=== PATIENT | female | born 1990 | race American Indian/Alaskan Native ===

== ENCOUNTER 2022-05-13 13:11 | Outpatient (CLI) | payer BC ==
[2022-05-13 13:34] VITALS: BP 127/68
--- NOTE | 2022-05-14 01:40 | History and Physical Report ---
History of Present Illness Date of examination: 05/14/22 Chief complaint: Contractions History of present illness: EDC Confirmation: 05/21/2022 Past History : 4 Term Births: 2 Premature Births: 0 Living Children: 2 Para: 2 Mult. Births: 0 Prev : 0 Aborta: 1 Elect. Ab: 0 Spont. Ab: 1 Ectopics: 0 # 1 Delivery date: 2010 Weeks Gestation: 40 labor: no Delivery type: Hours of labor: 6 Anesthesia type: none Delivery location: [facility] Inf[facility] Sex: Female weight: 6lbs Comments: no complications # 2 Delivery date: 2014 Weeks Gestation: 40 labor: no Delivery type: Hours of labor: 6 Anesthesia type: none Delivery location: [facility] Infant Sex: Male weight: 11lbs Comments: no complications, large baby # 3 Delivery date: 2017 Weeks Gestation: 5 Delivery type: SAB Comments: D&C Past Medical History: Reviewed and updated today: stomach ulcer-2017 Past Surgical History: Reviewed and updated today: Appendectomy 2015 D&C: 2016 Hernia repair 2015 Family History Summary: First Degree Blood Relative - Has No Known Family History - Entered On: 10/20/2021 Social History: Smoking History: Patient has never smoked. Risk Factors: Smoked Tobacco Use: Never smoker Smokeless Tobacco Use: Never Counseled to Quit/Cut Down: yes Passive Smoke Exposure: no HIV High Risk Behavior: no Caffeine Use: 1 drinks per day Exercise: no Exercise Counseling: yes Seatbelt Use: preg-residential counselor % Family History Risk Factors: Family History of MO in 1 Female Relative Age < 65: no Family History of MO in 1 Male Relative Age < 55: no No Dietary Counseling Reason: pn yes Alcohol Use: no Drug Use: no Past Medical History Anesthesia Complications: negative Anemia: negative Autoimmune Disorder: negative Bleeding Disorder: negative Blood Transfusions: negative Breast Disease: negative Diabetes: negative Heart Disease: negative Hypertension: negative Hepatitis/Liver Disease: negative Kidney Disease/UTI: negative Neurologic/Epilepsy/Migraines: negative Phlebitis/Varicosities: negative Psychiatric: negative Pulmonary Disease/Asthma: negative Thyroid Disease: negative Surgery (Non-lockstitch pocket setter): Appendectomy 2015 D&C: 2016 Hernia repair 2015 Abnormal PAP: negative ERMA Exposure: negative Infertility: negative Uterine Anomaly: negative Uterine Surgery (not C/S): negative Other Gynecologic Problems: negative Social Hx: Smoking History: Patient has never smoked. Infection History Hx of STD: none HIV Risk Eval: no Hepatitis B Risk Eval: low risk Personal hx. of genital herpes: no Partner hx. of genital herpes: no Rash, Viral, or Febrile illness since last LMP? no Genetic History Congenital Heart Defect: Mom: no Dad: no Galdino Disease: Mom: no Dad: no Thalassemia Mom: no Dad: no Neural Tube Defect Mom: no Dad: no Down's Syndrome Mom: no Dad: no Damaso-Sachs Mom: no Dad: no Sickle Cell Disease/Trait Mom: no Dad: no Hemophilia Mom: no Dad: no Muscular Dystrophy Mom: no Dad: no Cystic Fibrosis Mom: no Dad: no [place] Chorea Mom: no Dad: no Mental Retardation Mom: no Dad: no Fragile X Mom: no Dad: no Other Genetic/Chromosomal Disorder Mom: no Dad: no Child w/other defect Mom: no Dad: no Enviromental Exposures Enviromental Exposures Reviewed Xray Exposure: no Medication, drug, or alcohol use since LMP: no Chemical/Other Exposure: no Exposure to Cat Liter: no Hx of Parvovirus (Fifth Disease): no Occupational Exposure to Children: none Active Medications (reviewed today): None Current Allergies (reviewed today): * IBUPROFEN (Critical) Past History Past Medical History: other (see HPI) Past Surgical History: other (see HPI) 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 (see HPI) Family/Genetic History: other (see HPI) Social history: no significant social history - Obstetrical History Expected Date of Delivery: 05/21/22 Actual Gestation: 39 Week(s) 0 Day(s) : 4 Para: 2 Hx # Term Pregnancies: 2 Number of Pregnancies: 0 Spontaneous Abortions: 1 Induced : 0 Number of Living Children: 2 Medications and Allergies Allergies Allergy/AdvReac Type Severity Reaction Status Date / Time No Known Allergies Allergy Verified 05/13/22 13:57 Review of Systems All systems: negative - Vital Signs Vital signs: Vital Signs Pulse Pulse Ox 107 H 100 05/13/22 13:32 05/13/22 13:32 Temp Pulse Resp BP Pulse Ox 51 L 127/68 90 05/13/22 13:44 05/13/22 13:34 05/13/22 13:44 - Physical Exam Breasts: Positive: normal Cardiovascular: Regular rate Lungs: Positive: Normal air movement Abdomen: Positive: normal appearance, soft Genitourinary (Female): Positive: normal external genitalia, normal perenium Vulva: both: normal - Obstetrical Uterine Contraction Monitor Mode: External Cervical Dilatation: 1.5 (posterior) Cervical Effacement Percentage: 20 station: -3 Uterine Contraction Frequency (min): 2-3 Uterine Contraction Duration: 60 Uterine Contraction Pattern: Regular Uterine Tone Measurement Phase: Contraction Uterine Contraction Intensity: Mild Results All other labs normal. Assessment and Plan pt presented with regular ctx q2-3 minutes and appears very uncomfortable. Plan to admit for therapeutic rest with reevaluation as needed. GBS and labs collected in office but not available for review at this time. Admission labs in EMR. - Patient Problems (1) Labor, prolonged latent phase Status: Acute (2) 39 weeks gestation of Status: Acute
== END 2022-05-13 14:00 | disposition home or self-care (01) ==
LOC: TRG 13:11 → APU 13:15 → TRG 14:00
PROVIDERS: ATTEND Obstetrics & Gynecology
DX: O26.899 Other specified pregnancy related conditions, unspecified trimester (principal); Z3A.38 38 weeks gestation of pregnancy
CPT/HCPCS: 59025; Q0177

== ENCOUNTER 2022-05-25 20:11 | Inpatient (IN) | payer BC ==
[2022-05-25] MEDS ORDERED: fentaNYL 100 MCG/2 ML INJ IV PRN (20:46)
[2022-05-25] MEDS ORDERED: ACETAMINOPHEN 325 MG TAB PO PRN (20:46)
[2022-05-25] MEDS ORDERED: miSOPROStol 200 MCG TAB PR PRN (20:46)
[2022-05-25] MEDS ORDERED: CARBOPROST TROMETHAMINE 250 MCG/1 ML INJ IM PRN (20:46)
[2022-05-25] MEDS ORDERED: ePHEDrine SULFATE 50 MG/1 ML INJ IV PRN (20:46)
[2022-05-25] MEDS ORDERED: TERBUTALINE 1 MG/1 ML INJ SUB-Q PRN (20:46)
[2022-05-25] MEDS ORDERED: ONDANSETRON 4 MG/2 ML INJ IV PRN (20:46)
[2022-05-25] MEDS ORDERED: OXYTOCIN 10 UNIT/1 ML INJ IM PRN (20:46)
[2022-05-25] MEDS ORDERED: METHYLERGONOVINE MALEATE 0.2 MG/ML VIAL IM PRN (20:46)
[2022-05-25] MEDS ORDERED: LOPERAMIDE 2 MG CAP PO PRN (20:46)
[2022-05-25] MEDS ORDERED: MINERAL OIL 30 ML ORAL LIQD PO PRN (20:46)
[2022-05-25] MEDS ORDERED: OXYTOCIN DRIP 30 UNITS/500 ML BAG IV SCH ×2 (21:00)
[2022-05-25] MEDS ORDERED: LACTATED RINGERS 1,000 ML IV SCH (21:00)
--- NOTE | 2022-05-25 21:08 | History and Physical Report ---
History of Present Illness Date of examination: 05/25/22 Chief complaint: SROM and labor History of present illness: EDC Confirmation: 05/21/2022 Past History : 4 Term Births: 2 Premature Births: 0 Living Children: 2 Para: 2 Mult. Births: 0 Prev : 0 Aborta: 1 Elect. Ab: 0 Spont. Ab: 1 Ectopics: 0 # 1 Delivery date: 2010 Weeks Gestation: 40 labor: no Delivery type: Hours of labor: 6 Anesthesia type: none Delivery location: [facility] Inf[facility] Sex: Female weight: 6lbs Comments: no complications # 2 Delivery date: 2014 Weeks Gestation: 40 labor: no Delivery type: Hours of labor: 6 Anesthesia type: none Delivery location: [facility] Inf[facility] Sex: Male weight: 11lbs ( or 8#, patient is not sure) Comments: no complications, large baby # 3 Delivery date: 2016 Weeks Gestation: 5 Delivery type: SAB Comments: D&C Past Medical History: Reviewed and updated today: stomach ulcer-2017 Past Surgical History: Reviewed and updated today: Appendectomy 2015 D&C: 2016 Hernia repair 2015 Family History Summary: First Degree Blood Relative - Has No Known Family History - Entered On: 10/20/2021 Social History: Smoking History: Patient has never smoked. Risk Factors: Smoked Tobacco Use: Never smoker Smokeless Tobacco Use: Never Counseled to Quit/Cut Down: yes Passive Smoke Exposure: no HIV High Risk Behavior: no Caffeine Use: 1 drinks per day Exercise: no Exercise Counseling: yes Seatbelt Use: preg-claims counsel % Family History Risk Factors: Family History of SD in 1 Female Relative Age < 65: no Family History of SD in 1 Male Relative Age < 55: no No Dietary Counseling Reason: pn yes Alcohol Use: no Drug Use: no Past Medical History Anesthesia Complications: negative Anemia: negative Autoimmune Disorder: negative Bleeding Disorder: negative Blood Transfusions: negative Breast Disease: negative Diabetes: negative Heart Disease: negative Hypertension: negative Hepatitis/Liver Disease: negative Kidney Disease/UTI: negative Neurologic/Epilepsy/Migraines: negative Phlebitis/Varicosities: negative Psychiatric: negative Pulmonary Disease/Asthma: negative Thyroid Disease: negative Surgery (Non-oral therapist): Appendectomy 2015 D&C: 2017 Hernia repair 2015 Abnormal PAP: negative ERMA Exposure: negative Infertility: negative Uterine Anomaly: negative Uterine Surgery (not C/S): negative Other Gynecologic Problems: negative Social Hx: Smoking History: Patient has never smoked. Infection History Hx of STD: none HIV Risk Eval: no Hepatitis B Risk Eval: low risk Personal hx. of genital herpes: no Partner hx. of genital herpes: no Rash, Viral, or Febrile illness since last LMP? no Genetic History Congenital Heart Defect: Mom: no Dad: no Galdino Disease: Mom: no Dad: no Thalassemia Mom: no Dad: no Neural Tube Defect Mom: no Dad: no Down's Syndrome Mom: no Dad: no Damaso-Sachs Mom: no Dad: no Sickle Cell Disease/Trait Mom: no Dad: no Hemophilia Mom: no Dad: no Muscular Dystrophy Mom: no Dad: no Cystic Fibrosis Mom: no Dad: no [place] Chorea Mom: no Dad: no Mental Retardation Mom: no Dad: no Fragile X Mom: no Dad: no Other Genetic/Chromosomal Disorder Mom: no Dad: no Child w/other defect Mom: no Dad: no Enviromental Exposures Enviromental Exposures Reviewed Xray Exposure: no Medication, drug, or alcohol use since LMP: no Chemical/Other Exposure: no Exposure to Cat Liter: no Hx of Parvovirus (Fifth Disease): no Occupational Exposure to Children: none Active Medications (reviewed today): None Current Allergies (reviewed today): * IBUPROFEN (Critical) Past History Past Medical History: other (see HPI) Past Surgical History: other (see HPI) 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) Family/Genetic History: other (see HPI) - Obstetrical History Expected Date of Delivery: 05/21/22 Actual Gestation: 40 Week(s) 4 Day(s) : 4 Para: 2 Hx # Term Pregnancies: 2 Number of Pregnancies: 0 Spontaneous Abortions: 1 Induced : 0 Number of Living Children: 2 Medications and Allergies Allergies Allergy/AdvReac Type Severity Reaction Status Date / Time No Known Allergies Allergy Verified 05/13/22 13:57 Active Meds: Active Medications Acetaminophen (Acetaminophen 325 Mg Tab) 650 mg PO Q4H PRN PRN Reason: Pain, Mild (1-3) Butorphanol Tartrate (Butorphanol 2 Mg/1 Ml Inj) 2 mg IV Q2H PRN PRN Reason: Pain, Moderate(4-6) LABOR PAIN Carboprost Tromethamine (Carboprost Tromethamine 250 Mcg/1 Ml Inj) 250 mcg IM ONCE PRN PRN Reason: Uterine Bleeding Ephedrine Sulfate (Ephedrine Sulfate 50 Mg/1 Ml Inj) 10 mg IV Q2M PRN PRN Reason: Hypotension Fentanyl (Fentanyl 100 Mcg/2 Ml Inj) 100 mcg IV Q2H PRN PRN Reason: Pain,Severe (7-10) LABOR PAIN Oxytocin/Sodium Chloride (Pitocin/Ns 30 Unit/500ml) 30 units in 500 mls @ 2 mls/hr IV TITR KASSI; Protocol Lactated Ringer's (Lactated Ringers) 1,000 mls @ 125 mls/hr IV DIRECT KASSI Oxytocin/Sodium Chloride (Pitocin/Ns 30 Unit/500ml) 30 units in 500 mls @ 40 mls/hr IV TITR KASSI; Protocol Ampicillin Sodium (Ampicillin/Ns 2 Gm/100 Ml) 2 gm in 100 mls @ 100 mls/hr IV ONCE ONE; Protocol Stop: 05/25/22 22:59 Ampicillin Sodium (Ampicillin/Ns 1 Gm/50 Ml) 1 gm in 50 mls @ 100 mls/hr IV Q4H KASSI; Protocol Lidocaine (Lidocaine (2%) 20 Mg/1 Ml Vial 20 Ml Mdv) 20 ml INFILTRATI ONCE ONE Stop: 05/25/22 20:47 Loperamide HCl (Loperamide 2 Mg Cap) 2 mg PO ONCE PRN PRN Reason: give with Hemabate Methylergonovine Maleate (Methylergonovine Maleate 0.2 Mg/Ml Vial) 0.2 mg IM ONCE PRN PRN Reason: Uterine Bleeding Mineral Oil (Mineral Oil 30 Ml Oral Liqd) 30 ml PO QHS PRN PRN Reason: Constipation Misoprostol (Misoprostol 200 Mcg Tab) 800 mcg [place] ONCE PRN PRN Reason: Uterine Bleeding Ondansetron HCl (Ondansetron 4 Mg/2 Ml Inj) 4 mg IV Q8H PRN PRN Reason: Nausea And Vomiting Oxytocin (Oxytocin 10 Unit/1 Ml Inj) 10 unit IM ONCE PRN PRN Reason: Uterine Bleeding Terbutaline Sulfate (Terbutaline 1 Mg/1 Ml Inj) 0.25 mg SUB-Q ONCE PRN PRN Reason: Hyperstimulation/Hypertonicity Review of Systems All systems: negative - Vital Signs Vital signs: Vital Signs Pulse BP Pulse Ox 94 H 122/70 99 05/25/22 20:44 05/25/22 20:44 05/25/22 20:44 Temp Pulse Resp BP Pulse Ox 91 H 122/70 99 05/25/22 20:54 05/25/22 20:44 05/25/22 20:54 - Physical Exam Cardiovascular: Regular rate Lungs: Positive: Normal air movement Abdomen: Positive: normal appearance, soft Genitourinary (Female): Positive: normal external genitalia, normal perenium Vulva: both: normal Vagina: Positive: normal moisture (Small amount of clear blood-tinged fluid) Uterus: Positive: normal size, normal contour Anus/Rectum: Positive: normal perianal skin Extremities: Positive: normal - Obstetrical FHR: auscultation normal, category 1 Uterine Contraction Monitor Mode: External Cervical Dilatation: 0.5 Cervical Effacement Percentage: 50 station: -2 Uterine Contraction Pattern: Irregular Uterine Tone Measurement Phase: Resting Uterine Contraction Intensity: Mild Results Result Diagrams: 05/25/22 20:38 labs in [facility] under last admission GBS results not available to review at this time Assessment and Plan 31y/o admitted for SROM starting around 1940. GBS unknown, orders for ampicillin. Admission orders in emr - pt does not tolerate SVE or contractions. Will allow epidural as patient does not wish to feel ctx. Orders for pitocin to be started after epidural. Will consider placing IUPC when feasible to better monitor ctx. - Patient Problems (1) 40 weeks gestation of Current Visit: Yes Status: Acute (2) Active labor at term Current Visit: Yes Status: Acute (3) SROM (spontaneous rupture of membranes) Current Visit: Yes Status: Acute
[2022-05-25] MEDS ORDERED: LIDOCAINE (2%) 20 MG/1 ML VIAL 20 ML MDV INFILTRATI ONE (21:15)
[2022-05-25 21:34] LABS: Hematocrit 37.4 % (30.3-42.9); Hemoglobin 12.8 gm/dl (10.1-14.3); Mean Corpuscular HGB Conc 34 % (30-34); Mean Corpuscular Volume 90 fl (79-97); Red Blood Count 4.15 M/mm3 (3.65-5.03); Red Cell Distribution Width 13.1 % (13.2-15.2)
[2022-05-25 21:59] LABS: Platelet Count 186 K/mm3 (140-440)
[2022-05-25] MEDS ORDERED: AMPICILLIN/NS 2 GM/100 ML 2 GM/100 ML BAG IV ONE (22:00)
[2022-05-25] MEDS: BUTORPHANOL 2 MG/1 ML INJ IV PRN (22:12)
--- NOTE | 2022-05-26 01:29 | Progress Note ---
Labor Epidural - Labor Epidural Start Time: 00:20 Stop Time: 00:35 Performed by:: JULIANN LUA Procedure: Epidural Requested for Labor Pain. H&P and PT Chart reviewed and consent obtained. Time out performed and the procedure was explained, all questions answered. Patient was placed in a sitting position with monitors applied. The PTs back was prepped and draped in usual sterile fashion. The Skin was localized with 3 mL of 1% lidocaine at L3-L4. A 17-gauge Touhy epidural needle was advanced but unable to obtain TK. Pt is very obese and her body habitus along with her weight made it to where she was unable to put any type of curve in her back or push out. Multiple attempts were made but ultimately the attempt to place an epidural was unsuccessful. I felt at that point the risk was not worth the reward.
[2022-05-26] MEDS ORDERED: AMPICILLIN/NS 1 GM/50 ML 1 GM/50 ML BAG IV SCH (02:00)
[2022-05-26] MEDS: BUTORPHANOL 2 MG/1 ML INJ IV PRN (02:54)
--- NOTE | 2022-05-26 05:56 | Procedure Note ---
OB Delivery Note - Delivery Date of Delivery: 05/26/22 Network Controller: EDUARDO MILES Estimated blood loss: 200cc - Vaginal Delivery presentation: vertex Delivery position: OA Intrapartum events: PROM->1hr before delivery Delivery induction: none Delivery monitor: external FHT, external uterine Route of delivery: Delivery placenta: spontaneous Delivery cord: 3 umbilical vessels Episiotomy: none Delivery laceration: none Anesthesia: intravenous Delivery comments: Called to room for delivery, when I arrived baby boy had just been delivered by RN. Placenta delivered intact and complete. Pitocin IVF started. no lacerations to repair. fundus firm, lochia scant. EBL 200. All counts correct. Mother and infant remain LDR stable. - A at 1 minute: 8 at 5 minutes: 9 (7#15oz) Infant Gender: Male
[2022-05-26] MEDS ORDERED: PROMETHAZINE 25 MG TAB PO PRN (09:13)
[2022-05-26] MEDS ORDERED: WITCH HAZEL/ GLYCERIN PAD TP PRN (09:13)
[2022-05-26] MEDS ORDERED: ONDANSETRON 4 MG/2 ML INJ IV PRN (09:13)
[2022-05-26] MEDS ORDERED: BENZOCAINE/MENTHOL 20/0.5% TOP SPRAY 56 GM TP PRN (09:13)
[2022-05-26] MEDS ORDERED: PROMETHAZINE 25 MG RECT SUPP PR PRN (09:13)
[2022-05-26] MEDS ORDERED: MAGNESIUM HYDROXIDE (MOM) ORAL LIQD UDC PO PRN (09:13)
[2022-05-26] MEDS ORDERED: diphenhydrAMINE 25 MG CAP PO PRN (09:13)
[2022-05-26] MEDS ORDERED: LANOLIN/ZINC/DIMETHICONE (LANSINOH) 7 GM TP PRN (09:13)
[2022-05-26] MEDS ORDERED: PRENATAL VIT27-FE FUMARATE-FOLIC ACID VIT TAB PO SCH (10:00)
[2022-05-26] MEDS: IBUPROFEN 800 MG TAB PO SCH ×3 (10:47→23:35)
--- NOTE | 2022-05-26 13:10 | Progress Note ---
Assessment and Plan A: 31 y.o. s/p , ~ 8 hours . - Patient Problems (1) (normal spontaneous vaginal delivery) Current Visit: Yes Status: Acute Plan to address problem: Continue with care. Anticipate discharge home on 05/27. Subjective - Subjective Date of service: 05/26/22 Principal diagnosis: s/p @ term, ~ 8 hours Patient reports: appetite normal, voiding normally, pain well controlled : doing well Objective - Vital Signs Latest vital signs: Vital Signs Temp Pulse Resp BP BP Pulse Ox 05/26/22 08:30 98.3 F 79 14 104/56 99 05/26/22 07:31 67 99 05/26/22 07:26 84 99 05/26/22 07:21 76 99 05/26/22 07:16 70 99 05/26/22 07:11 77 98 05/26/22 07:06 73 98 05/26/22 07:01 89 98 05/26/22 06:56 87 97 05/26/22 06:51 82 98 05/26/22 06:46 63 98 05/26/22 06:41 65 99 05/26/22 06:36 78 99 05/26/22 06:31 76 99 05/26/22 06:26 68 99 05/26/22 06:21 71 98 05/26/22 06:16 67 98 05/26/22 06:12 75 101/56 05/26/22 06:11 76 98 05/26/22 06:10 98.4 F 05/26/22 06:06 73 98 05/26/22 06:01 77 98 05/26/22 05:56 83 98 05/26/22 05:51 83 98 05/26/22 05:46 103 H 98 05/26/22 05:41 89 99 05/26/22 05:36 89 98 05/26/22 05:31 86 99 05/26/22 05:27 81 94 05/26/22 05:26 84 94 05/26/22 05:21 98 H 97 05/26/22 05:16 78 99 05/26/22 05:11 84 95 05/26/22 05:06 124 H 97 05/26/22 05:01 73 100 05/26/22 04:56 97 H 100 05/26/22 04:53 77 135/70 07 04:51 77 100 07 04:46 72 100 07 04:45 81 94 07 04:41 116 H 98 05/26/22 04:39 82 94 07 04:36 74 100 05/26/22 04:31 75 98 07 04:26 75 99 05/26/22 04:21 81 98 07 04:16 79 100 05/26/22 04:11 84 97 05/26/22 04:06 83 100 05/26/22 04:01 79 97 07 03:56 72 99 05/26/22 03:51 76 98 05/26/22 03:46 80 97 05/26/22 03:41 78 97 05/26/22 03:36 81 97 05/26/22 03:31 78 98 05/26/22 03:26 79 98 05/26/22 03:21 81 98 05/26/22 03:16 83 97 05/26/22 03:11 79 99 05/26/22 03:06 83 97 05/26/22 03:05 83 94 05/26/22 03:01 95 H 95 05/26/22 02:56 109 H 94 05/26/22 02:51 77 100 05/26/22 02:46 91 H 99 05/26/22 02:39 133 H 98 05/26/22 02:34 72 100 05/26/22 02:29 71 99 05/26/22 02:24 75 100 05/26/22 02:19 90 99 05/26/22 02:14 86 98 05/26/22 02:09 84 100 05/26/22 02:04 82 100 05/26/22 02:00 98.2 F 05/26/22 01:59 79 99 05/26/22 01:54 76 100 22 01:49 83 99 05/26/22 01:44 112 H 99 05/26/22 01:39 82 99 05/26/22 01:34 80 100 05/26/22 01:29 89 99 07 01:24 79 98 05/26/22 01:19 82 98 05/26/22 01:14 77 97 05/26/22 01:09 80 97 07/22 01:04 76 95 05/26/22 00:59 82 98 05/26/22 00:54 109 H 98 05/26/22 00:49 103 H 99 05/26/22 00:44 114 H 99 05/26/22 00:39 100 H 98 05/26/22 00:34 120 H 98 05/26/22 00:29 94 H 98 05/26/22 00:24 90 100 05/26/22 00:19 96 H 100 05/26/22 00:14 105 H 100 05/26/22 00:10 106 H 94 05/26/22 00:09 91 H 100 05/26/22 00:04 81 100 05/25/22 23:59 77 100 05/25/22 23:54 89 96 05/25/22 23:49 127 H 95 05/25/22 23:44 78 100 05/25/22 23:39 76 100 05/25/22 23:34 98 H 99 05/25/22 23:29 83 97 05/25/22 23:24 90 96 05/25/22 23:19 94 H 98 05/25/22 23:14 82 99 05/25/22 23:09 86 100 05/25/22 23:04 87 98 05/25/22 22:59 104 H 99 05/25/22 22:54 92 H 98 05/25/22 22:49 96 H 98 05/25/22 22:44 101 H 97 05/25/22 22:39 99 H 97 05/25/22 22:34 93 H 96 05/25/22 22:29 89 97 05/25/22 22:24 92 H 95 05/25/22 22:19 94 H 95 05/25/22 22:18 86 94 05/25/22 22:14 101 H 99 05/25/22 22:09 118 H 98 05/25/22 22:04 95 H 100 05/25/22 21:59 79 100 05/25/22 21:54 98 H 100 05/25/22 21:50 75 117/59 05/25/22 21:49 88 100 05/25/22 21:22 97.9 F 14 100 05/25/22 20:54 91 H 99 05/25/22 20:49 87 99 05/25/22 20:44 100 H 122/70 99 Intake and Output 05/25/22 05/26/22 05/26/22 22:59 06:59 14:59 Other: # Voids Void 1 Weight 241 lb Estimated Blood Loss 100 - Exam Cardiovascular: Present: Regular rate Lungs: Present: Normal air movement Abdomen: Present: normal appearance, soft Uterus: Present: normal, firm Extremities: Present: normal - Labs Labs: Abnormal lab results 05/25/22 Range/Units 20:38 WBC 11.4 H (4.5-11.0) K/mm3 RDW 13.1 L (13.2-15.2) %
[2022-05-26 21:12] LABS: Hematocrit 32.9 % (30.3-42.9)
--- NOTE | 2022-05-27 08:10 | Discharge Summary ---
Providers - Providers Date of Admission: 05/25/22 20:46 Date of discharge: 05/27/22 Attending physician: BERONICA MILES 05/26/22 09:13 Consult to Applications Support Specialist [CONS] Routine Reason For Exam: assistance with , SNS Primary care physician: BERONICA MILES Hospitalization Reason for admission: Labor & SROM Condition: Good Pertinent studies: post delivery H&H 11.0/32.9 Procedures: Hospital course: uncomplicated and course Disposition: 01 HOME / SELF CARE / HOMELESS Final Discharge Diagnosis (Prints w/discharge instructions): vaginal Time spent for discharge: 20 - Discharge Diagnoses (1) (normal spontaneous vaginal delivery) Status: Acute Core Measure Documentation - Palliative Care Palliative Care/ Comfort Measures: Not Applicable - Core Measures Any of the following diagnoses?: none Exam - Constitutional Vitals: Temp Pulse Resp BP Pulse Ox 97.6 F 71 20 106/60 97 05/27/22 00:32 05/27/22 00:32 05/27/22 00:32 05/27/22 00:32 05/27/22 00:32 General appearance: Present: no acute distress, well-nourished - EENT Eyes: Present: PERRL ENT: hearing intact - Neck Neck: Present: normal ROM - Respiratory Respiratory effort: normal Respiratory: bilateral: CTA - Cardiovascular Rhythm: regular Heart Sounds: Absent: rub, click - Extremities Extremities: No edema Peripheral Pulses: within normal limits - Abdominal General gastrointestinal: Present: soft, non-tender, non-distended, normal bowel sounds Female genitourinary: Present: normal - Integumentary Integumentary: Present: clear, warm, dry - Musculoskeletal Musculoskeletal: gait normal, strength equal bilaterally - Psychiatric Psychiatric: appropriate mood/affect, intact judgment & insight - Neurologic Neurologic: CNII-XII intact, moves all extremities - Additional findings Additional findings: lochia scant, fundus firm, Plan Activity: no restrictions Diet: regular Follow up with: BERONICA MILES MD [Primary Care Provider] - 7 Days (Congratulations! Please call [phone] to schedule your son's circumcision in 1 week and your visit in 4-6 weeks. Bring EMLA cream to your son's appointment and wait for instructions. call for any questions or concerns. ) Prescriptions: Lidocain2.5%/Prilocai2.5% [Emla] 1 applic TP ONCE #1 tube Ibuprofen [Motrin] 800 mg PO Q8HR PRN #20 tablet PRN Reason: Pain, Moderate (4-6)
[2022-05-27 13:02] VITALS: BP 100/45
== END 2022-05-27 14:40 | disposition home or self-care (01) | DRG 807 ==
LOC: TRG 20:11 → APU 20:12 → LD 20:46 → TRG 20:46 → LD 21:38 → OB 05-26 08:26
PROVIDERS: ADMIT Obstetrics & Gynecology; ATTEND Obstetrics & Gynecology
PROC: 10E0XZZ Delivery of Products of Conception, External Approach (ICD-10-PCS; principal; 2022-05-26)
PROC: 3E0R3BZ Introduction of Anesthetic Agent into Spinal Canal, Percutaneous Approach (ICD-10-PCS; 2022-05-26)
PROC: 00HU33Z Insertion of Infusion Device into Spinal Canal, Percutaneous Approach (ICD-10-PCS; 2022-05-26)
DX: O42.02 Full-term premature rupture of membranes, onset of labor within 24 hours of rupture (principal); Z37.0 Single live birth; Z3A.40 40 weeks gestation of pregnancy; Z20.822 Contact with and (suspected) exposure to COVID-19
CPT/HCPCS: 36415; 85014; 85018; 85027; 86592; 86850; 86900; 86901; G0378; J0290; J0595; J2590; J3010; U0003